=== PATIENT | female | born 1970 | race African-American/Black ===

== ENCOUNTER 2017-04-14 06:49 | Inpatient (IN) ==
[2017-04-14 07:26] LABS: Basophils % 0.7 % (0.0-0.8); Eosinophils # 0.2 10*3/uL (0.0-0.87); Eosinophils % 4.1 % (0.00-10.9); Hematocrit 41.6 VOL% (35.7-47.0); Hemoglobin 13.4 GM/DL (12.0-16.0); Immature Granulocytes % 0.2 %; Immature Granulocytes Absolute 0.01 #; Lymphocytes # 1.3 10*3/uL (1.4-4.0); Lymphocytes % 28.8 % (21.3-54.2); Mean Corpuscular HGB Conc 32.2 GM/DL (32-36); Mean Corpuscular Hemoglobin 32 PG (27-34); Mean Corpuscular Volume 97.7 FL (87-102); Mean Platelet Volume 11.1 FL (9.6-12.0); Monocytes # 0.6 10*3/uL (0.11-0.8); Monocytes % 13.7 % (1.7-12.7); Neutrophils # 2.3 10*3/uL (1.4-7.4); Neutrophils % 52.5 % (38.7-73.9); Platelet Count 260 T/CUMM (130-400); Red Blood Count 4.26 MC/CUMM (3.8-5.5); Red Cell Distribution Width 13.1 % (9.3-17.3); White Blood Count 4.4 T/CUMM (4-12)
[2017-04-14 08:04] LABS: Calcium 9.5 MG/DL (8.5-10.1); Osmolality,Calculated 275.5 MOS/KG (273-304); Potassium 4.2 MMOL/L (3.5-5.1)
--- NOTE | 2017-04-14 08:32 | CT Report ---
Referring physician: Reji Garcia EXAM: CT soft tissue neck with contrast DATE: 04/14/2017 COMPARISON: None REASON: Severe stridor TECHNIQUE: Axial images of the soft tissue neck were obtained after administration of 80 cc of Omnipaque 350 IV contrast. Sagittal and coronal reformatted images were acquired. Total DLP was 432.80 mGy*cm. FINDINGS: No acute findings in the visualized brain, orbits, parotid glands, submandibular glands, nasopharynx, and thyroid gland. Probable chronic scarring at the lung apices with 5 mm noncalcified pulmonary nodule in the right upper lobe. Mucosal thickening with polypoidal mucosal findings in the paranasal sinuses. Degenerative changes are noted. The scans are degraded by motion artifact but the airway appears narrowed especially at the level of the trachea. There is some associated prominence of the epiglottis and aryepiglottic folds. Several lymph nodes in the neck are borderline in size to minimally enlarged. IMPRESSION: The airway appears narrowed especially at the level of the trachea with some of associated prominence of the epiglottis and aryepiglottic folds. This finding can be seen with possible infectious or inflammatory process. If symptoms persist, endoscopy may be helpful to exclude additional pathology. Sinusitis with retention cysts/polyps. Several bilateral neck nodes which are borderline in size to minimally enlarged. Indeterminate 5 mm noncalcified pulmonary nodule in the right upper lobe. Short-term follow-up CT chest may be helpful for further evaluation. The CT exam was performed using one or more of the following dose reduction techniques: Automated exposure control and adjustment of the mA and/or kV according to patient size. PROCEDURE INTERPRETED AT [facility] DEPARTMENT OF RADIOLOGY Final Report Signed by: Dr. Delmis Elizabeth
[2017-04-14] MEDS ORDERED: LEVOFLOXACIN INJ 750 MG in PREMIX 1 EACH IV STA (09:09)
[2017-04-14] MEDS ORDERED: methylPREDNISolone SOD SUC 125 MG/2 ML VIAL IV STA (09:09)
[2017-04-14] MEDS ORDERED: RACEPINEPHRINE 0.5 ML NEB RESP TX STA (09:10)
[2017-04-14] MEDS ORDERED: LEVOFLOXACIN INJ 150 ML IV ONE (09:14)
[2017-04-14] MEDS ORDERED: methylPREDNISolone SOD SUC 125 MG/2 ML VIAL ONE (09:14)
--- NOTE | 2017-04-14 10:21 | Consultation ---
Assessment and Plan - Time spent with patient Time spent with patient: Greater than 30 minutes (1) Acute laryngotracheitis Status: Acute Assessment and plan: I strongly recommend the patient be admitted to ICU and I would be more than happy to consult because I feel the patient has multiple comorbidities I feel she would be best treated primarily by the hospitalist but I would be happy to consult. My recommendations for care from an otolaryngologic standpoint would include IV antibiotics to cover staph aureus and potentially MRSA I presume she will have a nasal swab upon ICU admittance which would be recommended. Additionally she needs at least 24 hours of Decadron 10 mg IV every 8 hours. I will defer aggressive treatment of her primary and secondary hyperglycemia/ possible diabetes to the hospitalist. Additionally I recommend Flonase daily 2 puffs, inhaled/nebulized cortico-steroid treatment I will defer this to pulmonology and/or the hospitalist. I would consider an antifungal swish and spit to help prevent any secondary yeast infection that may follow the above treatment. Additionally I would add nasal saline sprays 4 times daily. Additionally I would consider treating the external nasal valve with Elocon cream but if there is an exacerbation I would strongly consider switching to mupirocin. I would consider but defer to the hospitalist consulting pulmonology and potentially rheumatology. If she does not improve over the next several days we may consider taking her back on Sunday to the OR for a laryngoscopy to better evaluate the subglottis for potential lesions but her airway is so tedious currently that that would put her at a high risk. Additionally I would have a very narrow threshold for intubation and would plan accordingly with potentially the glide scope and anesthesia being present as I feel she will be a difficult intubation. Do not hesitate to call and ask for any additional advice or questions I plan on being consulted on this case and following this case but with her multiple medical comorbidities do not feel she is best served with me being primary on this case. Current Visit: Yes (2) Chronic sinusitis Status: Acute Current Visit: Yes (3) Rhinitis sicca Status: Acute Current Visit: Yes (4) Nasal valve stenosis Status: Acute Current Visit: Yes (5) Eczema Status: Acute Current Visit: Yes (6) Dyspnea Status: Acute Current Visit: Yes (7) Laryngeal stridor Status: Acute Current Visit: Yes History of Present Illness - Data of Consult Patient: new to practice Consult date: 04/14/17 Requesting Physician: Tommy Garcia - Consult Narrative Reason for consult: Stridor, laryngotracheal swelling/edema per CT History of present illness: Ms. Nunez is a 46 year old female 1-1/2 year history of shortness of breath that has been slowly increasing in severity and frequency with this acute exacerbation she came to the emergency room to be evaluated where she was found to be stridorous but was able to be kept from respiratory distress and failure with racemic epi and oxygen treatment. She has seen an ENT in the past 2 described her to have "eczema in the nose". CT was performed and found to have laryngotracheal edema of unknown origin probably the cause of her stridor and pansinusitis and ENT was called for evaluation and treatment. CC: - Home Medications and Allergies Allergies/Adverse Reactions: Allergies Allergy/AdvReac Type Severity Reaction Status Date / Time No Known Allergies Allergy Verified 04/14/17 06:56 12 point system: reviewed and no additional remarkable complaints except as stated - EENT Nose, mouth and throat: Present: nasal congestion, sinus pressure, sore throat, throat swelling - Respiratory Respiratory: Present: cough, dyspnea, dyspnea on exertion, other Medical,Surgical,& Family Hx - Medical History Cardio: History of: Hypertension - Surgical History Orthopedic Surgeries: Surgical HX of;: Total Hip Replacement (Right) - Social History Smoking Status: Never smoker Exam - Constitutional Vitals: Period Temp Pulse Resp BP Sys/Wagner Pulse Ox Last 24 Hr 97.0 F-97.0 F 67-72 19-24 189-189/109-109 100-100 General appearance: mild distress, morbidly obese - Head Head exam: Present: normal inspection, normocephalic - Eye Eye exam: Present: EOMI Pupils: Present: ADELINE - ENT ENT exam: Present: other (Bilateral external nasal valve stenosis secondary to chronic long-standing untreated or poorly treated eczema. Bilateral rhinitis Pura secondary to eczema and nasal valve stenosis or potentially primary or both. A chronic bilateral sinusitis most likely secondary to her external nasal valve stenosis and rhinitis Pura. Bedside laryngoscopy was performed revealing diffuse supraglottic edema unable to visualize the subglottis on exam no diffuse mass or lesion causing this presumed secondary bacterial supraglottitis as an exacerbation of viral supraglottitis which she would be prone to because of her upper respiratory complaints consistent with a unified airway.) - Expanded ENT Exam Mouth exam: Present: dry mucosa Throat exam: Present: post pharyngeal edema, post pharyngeal erythema ( Erythemic and edematous uvula possibly bacterial but potentially irritative because of upper respiratory symptoms and chronic mouth breathing and snoring) - Neck Neck exam: Present: lymphadenopathy (Per CT no gross lymphadenopathy per palpation though there is tenderness and with her amount of presumed infection this would be consistent with the lymphadenopathy as well), tenderness - Respiratory Respiratory exam: Present: stridor (Mild stridor but could escalate to respiratory distress if continued treatment is not performed I would have a low threshold for intubation in the prepared with a glide scope and potentially anesthesia because of a swollen supraglottis and a large tongue base I would presume she would be a difficult intubation) - GI/Abdominal GI/Abdominal exam: Present: soft (Obese) - Extremities Exam Extremities exam: Present: normal inspection, normal capillary refill - Neurological Exam Neurological exam: Present: alert, oriented X3, CN II-XII intact - Psychiatric Psychiatric exam: Present: normal affect, normal mood - Skin Skin exam: Present: normal color, warm Results - Labs CBC & BMP: 04/14/17 07:20 04/14/17 07:20 Lab Results: I have reviewed the past 24 hour labs - Diagnostic Findings Procedure: CT: pending, image reviewed by me, report reviewed by me ( Laryngotracheal edema consistent with clinical exam)
[2017-04-14] MEDS ORDERED: DEXAMETHASONE 10 MG/1 ML VIAL IV STA (10:22)
--- NOTE | 2017-04-14 10:22 | Emergency Department Note ---
Junior Lyn Brittany, am scribing for, and in the presence of, Tommy Garcia MD 07:10. Jose Lyn Doug C, MD, personally performed the services described in this documentation, ascribed by Sophia Pacheco in my presence, and it is both accurate and complete . Arrival - Arrival Chief Complaint: Shortness of Breath Stated Complaint: cant catch breath ED Nursing Triage Note: Pt c/o SOB (upper resp) that has been going on for a 1.5 years now pt has been seen by ENT (Dx with eczema in her nose) and [facility] ER several times. Mode of Arrival: Wheelchair Limitations: No Limitations Source: Patient, RN Notes Reviewed - History of Present Illness HPI Narrative: Patient is a 46-year-old black female presents emergency room complaining of trouble breathing for the last year and a half. Patient states this seems to be getting worse. Patient states she went to the ears nose and throat doctor in [facility] who looked in her nose and told her she had eczema in her nose. She has a long history of eczema. She did not have a laryngoscopy apparently. Patient is a smoker and states she smoked about a pack a day for 15 -20 years. She has not coughed up any blood. She states her shortness of breath is getting worse. Patient denies any fever, chills, or other constitutional symptoms. Onset (ago): year(s) (1.5 years) Consistency: constant Allergies/Adverse Reactions: Allergies Allergy/AdvReac Type Severity Reaction Status Date / Time No Known Allergies Allergy Verified 04/14/17 06:56 Home Medications: Home Medications Medication Instructions Recorded Confirmed Type Valsartan [Diovan] 160 mg PO BEDTIME 04/14/17 04/14/17 History Review of System - Review of System 12 point system: reviewed and no additional remarkable complaints except as stated - Review of System Constitutional: Absent: chills, fever Eyes: Absent: vision change Head/Ears/Nose/Throat: Present: other ("feels as if something is stuck in her throat"). Absent: nasal drainage, sore throat Respiratory: Present: respiratory distress (Stridor) Cardiovascular: Present: dyspnea on exertion. Absent: chest pain Gastrointestinal: Absent: abdominal pain, nausea, vomiting, diarrhea, constipation Genitourinary female: Absent: dysuria, frequency, urgency Musculoskeletal: Absent: arm pain, back pain, leg pain, neck pain Skin: Absent: rash Neurological: Absent: headache Psychiatric: Absent: anxiety, depression Hematological/Lymphatic: Absent: easy bleeding, easy bruising Medical,Surgical,& Family Hx - Medical History Cardio: History of: Hypertension Other: History of: Eczema - Surgical History Reproductive Surgeries: Surgical HX of;: Tubal Ligation Orthopedic Surgeries: Surgical HX of;: Total Hip Replacement (Right) - Family History Family History: Reports;: Family Diabetes, Family Hypertension - Social History Smoking Status: Former smoker (PPD x15 years prior to cessation) Exam Vital Signs: Vital Signs Temperature 97.0 F L 04/14/17 07:08 Pulse Rate 72 04/14/17 09:53 Respiratory Rate 19 04/14/17 09:53 Blood Pressure 189/109 04/14/17 07:08 O2 Sat by Pulse Oximetry 100 04/14/17 09:53 - General General appearance: alert, in distress (Patient is stridorous) - Head Head exam: Present: atraumatic, normocephalic, normal inspection - Eye Eye exam: Present: normal appearance, PERRL, EOMI - ENT ENT exam: Present: mucous membranes moist. Absent: normal oropharynx ( erythematous posterior phayrnx; enlarged tonsils bilaterally) - Neck Neck exam: Present: normal inspection, full ROM, trachea midline - Chest Chest inspection: Present: normal inspection, symmetric chest wall rise - Respiratory Respiratory exam: Present: stridor. Absent: normal lung sounds bilaterally - Cardiovascular Cardiovascular exam: Present: regular rate, normal rhythm, normal heart sounds - Abdominal Exam Abdominal exam: Present: soft, normal bowel sounds. Absent: tenderness - Extremities Exam Extremities exam: Present: normal inspection - Back Exam Back exam: Present: normal inspection - Neurological Exam Neurological exam: Present: alert, oriented X3, CN II-XII intact. Absent: motor sensory deficit - Psychiatric Psychiatric exam: Present: normal affect, normal mood - Skin Skin exam: Present: warm, dry Course Course Narrative: Patient's clinical presentation, laboratory radiograph findings were discussed with Dr. Jerrell Livingston who will see the patient in the emergency room. Patient was found to have findings on her nasal laryngoscope with consistent with her CT findings. He requests that the hospitalist service admit her. She was discussed with Sissy who is covering the hospitalist service and a unit bed will be obtained. Results - Labs CBC & BMP: 04/14/17 07:20 04/14/17 07:20 Lab Results: I have reviewed the patients labs Labs: Laboratory Tests 04/14/17 07:20 WBC 4.4 RBC 4.26 Hgb 13.4 Hct 41.6 Plt Count 260 Barber % (Auto) 13.7 H Lymph # (Auto) 1.3 L Laboratory Tests 04/14/17 07:20 Sodium 139 Potassium 4.2 Chloride 103 Carbon Dioxide 33 H BUN 9 Creatinine 0.90 Glucose 99 - Diagnostic Findings Procedure: CT: report reviewed by me (Soft Tissue Neck CT: The airway appears narrowed especially at the level of the trachea with some of associated prominence of the epiglottis and aryepiglottic folds. This finding can be seen with possible infectious or inflammatory process. If symptoms persist, endoscopy may be helpful to exclude additional pathology. Sinusitis with retention cysts/polyps. Several bilateral neck nodes which are borderline in size to minimally enlarged. Indeterminate 5 mm noncalcified pulmonary nodule in the right upper lobe. Short-term follow-up CT chest may be helpful for further evaluation.) Disposition Clinical Impression: Acute tracheitis, Stridor Case discussed with: patient Disposition: Still a Patient Condition: Guarded Time of Disposition: 10:21
[2017-04-14] MEDS ORDERED: DEXAMETHASONE 10 MG/1 ML VIAL ONE (10:37)
--- NOTE | 2017-04-14 10:50 | Hospitalist History & Physical ---
Assessment and Plan - Time spent with patient Time spent with patient: Greater than 30 minutes (1) Laryngeal stridor Status: Acute Assessment and plan: Admit to CCu. Start steroids; inhalers; consult ENT, pulmonary. Will discuss with Dr Roe for further recommendations for care. Current Visit: Yes History of Present Illness Chief complaint: SOB; Stridor History of present illness: Ms. Nunez is a 46 year old black female with PMHx of HTN and eczema present to ED for c/o worsening shortness of breath. Upon arrival to the ED she was noted to be significantly short of breath and stridor present. She reports she has been dealing with the shortness of breath for over a year. She reports that she went to an ENT in [place] and was only told she had eczema in her nose but did not evaluate her throat. She reports feeling like her throat is closing up on her. While in the ED: she was geven racepinephrine neb; Solumedrol 125mg; Dexamethoasone 10mg IV; Levaquin 750mg IV. CT Neck: IMPRESSION: The airway appears narrowed especially at the level of the trachea with some of associated prominence of the epiglottis and aryepiglottic folds. This finding can be seen with possible infectious or inflammatory process. If symptoms persist, endoscopy may be helpful to exclude additional pathology. Sinusitis with retention cysts/polyps. Several bilateral neck nodes which are borderline in size to minimally enlarged. Indeterminate 5 mm noncalcified pulmonary nodule in the right upper lobe. Short-term follow-up CT chest may be helpful for further evaluation. LABS: WBC 4.4; H&H stable 13.4 & 41.6; Electrolytes within normal range; BUN 9 creatinine 0.90; ENT was consulted to the ED: ENT (Dr Livingston) recommended patient be admitted to ICU and would be more than happy to consult because he feels patient has multiple comorbidities. Recommendations for care from an otolaryngologic standpoint would include IV antibiotics to cover staph aureus and potentially MRSA; a nasal swab upon ICU admittance. Additionally she needs at least 24 hours of Decadron 10 mg IV every 8 hours. He recommends Flonase daily 2 puffs, inhaled/nebulized cortico-steroid treatment I will defer this to pulmonology and /or the hospitalist. I would consider an antifungal swish and spit to help prevent any secondary yeast infection that may follow the above treatment. Additionally He recommends add nasal saline sprays 4 times daily. Additionally I would consider treating the external nasal valve with Elocon cream but if there is an exacerbation I would strongly consider switching to mupirocin. If patient does not improve over the next several days we may consider taking her back on Sunday to the OR for a laryngoscopy to better evaluate the subglottis for potential lesions but her airway is so tedious currently that that would put her at a high risk, with a very narrow threshold for intubation and would plan accordingly with potentially the glide scope and anesthesia being present, she will be a difficult intubation. Do not hesitate to call and ask for any additional advice or questions I plan on being consulted on this case and following this case but with her multiple medical comorbidities do not feel she is best served with me being primary on this case. After Discussion with Dr Brock Garcia in the Ed and Dr Roe with Hospital Medicine, it was agreed for the patient to be admitted to CCU for further evaluation and close monitoring. Home medications will be reviewed and reconciliation to follow. Home Medications Medication Instructions Recorded Confirmed Type Albuterol Inhaler [Proventil 2 puff INH Q4H PRN 04/14/17 04/14/17 History Inhaler] Valsartan [Diovan] 160 mg PO BEDTIME 04/14/17 04/14/17 History Allergies Allergy/AdvReac Type Severity Reaction Status Date / Time No Known Allergies Allergy Verified 04/14/17 06:56 Medical,Surgical,& Family Hx - Medical History Cardio: History of: Hypertension Other: History of: Eczema - Surgical History Reproductive Surgeries: Surgical HX of;: Tubal Ligation Orthopedic Surgeries: Surgical HX of;: Total Hip Replacement (Right) - Family History Family History: Reports;: Family Diabetes, Family Hypertension - Social History Smoking Status: Never smoker Review of systems: ROS completed and pertinent positives and negatives in HPI. Exam - Constitutional Vitals: Period Temp Pulse Resp BP Sys/Wagner Pulse Ox Last 24 Hr 97.0 F-97.0 F 67-72 19-24 189-189/109-109 100-100 General appearance: over weight - Head Head exam: Present: normal inspection - Eye Eye exam: Present: EOMI Pupils: Present: ADELINE - Expanded ENT Exam Mouth exam: Present: dry mucosa Throat exam: Present: post pharyngeal edema, post pharyngeal erythema ( Erythemic and edematous uvula possibly bacterial but potentially irritative because of upper respiratory symptoms and chronic mouth breathing and snoring) - Neck Neck exam: Present: normal inspection (midline trachea; with improving stridor) . Absent: thyromegaly - Respiratory Respiratory exam: Present: clear to auscultation bilaterally, stridor (mild and improving (per patient"my throat does feel a little more open than before") - Cardiovascular Cardiovascular exam: Present: regular rate and rhythm - GI/Abdominal GI/Abdominal exam: Present: normal bowel sounds, soft. Absent: tenderness, rebound - Extremities Exam Extremities exam: Present: normal inspection, full ROM. Absent: edema - Neurological Exam Neurological exam: Present: alert, oriented X3, CN II-XII intact - Psychiatric Psychiatric exam: Present: normal affect, normal mood. Absent: agitated, anxious - Skin Skin exam: Present: normal color, warm, dry Results - Labs CBC & BMP: 04/14/17 07:20 04/14/17 07:20 Lab Results: I have reviewed the past 24 hour labs - Diagnostic Findings Procedure: CT: report reviewed by me (Neck: the airways appear narrowed marshal. at the level of the trachea w/ some of associated prominence of the epiglottis & larynepiglottic folds, can be possible infectious or inflammatory process; endocsopy may be helpful)
[2017-04-14] MEDS ORDERED: ALBUTEROL 2.5 MG/3 ML NEB RESP TX PRN (11:05)
[2017-04-14] MEDS ORDERED: GLUCAGON 1 MG VIAL IM PRN (11:05)
[2017-04-14] MEDS ORDERED: DEXTROSE 50% 25 GM/50 ML SYRINGE IV PRN (11:05)
[2017-04-14] MEDS ORDERED: ONDANSETRON 4 MG/2 ML VIAL IV PRN (11:05)
[2017-04-14] MEDS: NYSTATIN 500,000 UNIT/5 ML UDCUP SWISH/SWAL SCH ×3 (12:25→20:48)
[2017-04-14] MEDS: ENOXAPARIN 40 MG/0.4 ML SYRINGE SUBCUT SCH (12:25)
[2017-04-14] MEDS: hydrALAZINE 20 MG/1 ML VIAL IV PRN (12:25)
[2017-04-14] MEDS: PANTOPRAZOLE 40 MG VIAL IV SCH (12:25)
[2017-04-14] MEDS: BUDESONIDE 0.5 MG/2 ML NEB RESP TX SCH ×2 (12:51→19:11)
[2017-04-14] MEDS: INSULIN REGULAR 100 UNIT/ML SUBCUT SCH ×3 (13:02→20:47)
[2017-04-14] MEDS: FLUTICASONE 50 MCG NASAL SPRAY 16 GM BOTTLE BOTH NARES SCH (13:04)
[2017-04-14] MEDS: DEXAMETHASONE 10 MG/1 ML VIAL IV SCH ×2 (14:06→21:43)
[2017-04-14] MEDS: VANCOMYCIN INJ 1,750 MG in SODIUM CHLORIDE 0.9% 500 ML IV SCH ×2 (14:24→20:48)
[2017-04-14] MEDS: SODIUM CHLORIDE 0.65% NASAL SPRAY 45 ML BOTTLE BOTH NARES SCH ×3 (15:48→20:49)
[2017-04-14] MEDS: MORPHINE 2 MG/1 ML SYRINGE IV PRN ×2 (15:49→20:48)
[2017-04-15 04:41] LABS: Basophils % 0.1 % (0.0-0.8); Hematocrit 43.1 VOL% (35.7-47.0); Hemoglobin 13.9 GM/DL (12.0-16.0); Immature Granulocytes % 0.4 %; Immature Granulocytes Absolute 0.04 #; Lymphocytes # 0.9 10*3/uL (1.4-4.0); Lymphocytes % 8.3 % (21.3-54.2); Mean Corpuscular HGB Conc 32.3 GM/DL (32-36); Mean Corpuscular Hemoglobin 32 PG (27-34); Mean Corpuscular Volume 97.7 FL (87-102); Mean Platelet Volume 11.3 FL (9.6-12.0); Monocytes # 0.1 10*3/uL (0.11-0.8); Monocytes % 0.8 % (1.7-12.7); Neutrophils # 9.5 10*3/uL (1.4-7.4); Neutrophils % 90.4 % (38.7-73.9); Platelet Count 271 T/CUMM (130-400); Red Blood Count 4.41 MC/CUMM (3.8-5.5); Red Cell Distribution Width 12.9 % (9.3-17.3); White Blood Count 10.5 T/CUMM (4-12)
[2017-04-15 05:16] LABS: Calcium 9.3 MG/DL (8.5-10.1); Potassium 4.3 MMOL/L (3.5-5.1)
[2017-04-15] MEDS: DEXAMETHASONE 10 MG/1 ML VIAL IV SCH ×3 (05:49→21:16)
[2017-04-15] MEDS: BUDESONIDE 0.5 MG/2 ML NEB RESP TX SCH ×2 (07:24→19:17)
[2017-04-15] MEDS: INSULIN REGULAR 100 UNIT/ML SUBCUT SCH ×4 (07:35→21:14)
[2017-04-15] MEDS: VANCOMYCIN INJ 1,750 MG in SODIUM CHLORIDE 0.9% 500 ML IV SCH ×2 (08:30→15:07)
--- NOTE | 2017-04-15 08:57 | Hospitalist Progress Note ---
Assessment and Plan - Time spent with patient Time spent with patient: Less than 30 minutes (1) Acute laryngotracheitis Status: Acute Assessment and plan: ENT has been consulted and is assisting. Will continue IV antibiotics, nebulized corticosteroids, IV Decadron. Will await further recommendations from ENT. Current Visit: Yes (2) Hypertension Status: Chronic Assessment and plan: Blood pressures remain well-controlled at this time. Will continue current regimen. Current Visit: Yes Qualifiers: Hypertension type: essential hypertension Qualified Code(s): I10 - Essential (primary) hypertension Hospitalist: Subjective Interval history: Patient feels better today. She still has some hoarseness and has some dyspnea with minimal exertion. She denies any chest pain, cough, sputum production Exam - Constitutional Vitals: Period Temp Pulse Resp BP Sys/Wagner Pulse Ox Last 24 Hr 97.2 F-98 F 67-87 12-24 127-169/76-140 90-100 General appearance: no acute distress - Head Head exam: Present: normocephalic, atraumatic - Eye Eye exam: Present: EOMI Pupils: Present: ADELINE - ENT ENT exam: Present: normal exam - Expanded ENT Exam Mouth exam: Present: dry mucosa Throat exam: Present: post pharyngeal edema, post pharyngeal erythema ( Erythemic and edematous uvula possibly bacterial but potentially irritative because of upper respiratory symptoms and chronic mouth breathing and snoring) - Respiratory Respiratory exam: Present: clear to auscultation bilaterally - Cardiovascular Cardiovascular exam: Present: regular rate and rhythm - GI/Abdominal GI/Abdominal exam: Present: normal bowel sounds, other. Absent: tenderness, rebound - Extremities Exam Extremities exam: Absent: calf tenderness - Neurological Exam Neurological exam: Present: alert, oriented X3, CN II-XII intact. Absent: motor sensory deficit - Psychiatric Psychiatric exam: Present: normal affect, normal mood. Absent: agitated, anxious - Skin Skin exam: Present: warm, dry. Absent: erythema Results - Labs CBC & BMP: 04/15/17 04:30 04/15/17 04:30 Lab Results: I have reviewed the past 24 hour labs
[2017-04-15] MEDS: PANTOPRAZOLE 40 MG VIAL IV SCH (09:42)
[2017-04-15] MEDS: NYSTATIN 500,000 UNIT/5 ML UDCUP SWISH/SWAL SCH ×4 (09:43→21:14)
[2017-04-15] MEDS: LEVOFLOXACIN INJ 750 MG in PREMIX 1 EACH IV SCH (09:43)
[2017-04-15] MEDS: SODIUM CHLORIDE 0.65% NASAL SPRAY 45 ML BOTTLE BOTH NARES SCH ×4 (09:44→21:15)
[2017-04-15] MEDS: FLUTICASONE 50 MCG NASAL SPRAY 16 GM BOTTLE BOTH NARES SCH (09:46)
[2017-04-15] MEDS: hydrALAZINE 20 MG/1 ML VIAL IV PRN (10:07)
[2017-04-15] MEDS: ENOXAPARIN 40 MG/0.4 ML SYRINGE SUBCUT SCH (11:27)
--- NOTE | 2017-04-15 11:58 | Progress Note ---
Assessment and Plan - Time spent with patient Time spent with patient: Less than 30 minutes (1) Acute laryngotracheitis Status: Acute Assessment and plan: I strongly recommend the patient be admitted to ICU and I would be more than happy to consult because I feel the patient has multiple comorbidities I feel she would be best treated primarily by the hospitalist but I would be happy to consult. My recommendations for care from an otolaryngologic standpoint would include IV antibiotics to cover staph aureus and potentially MRSA I presume she will have a nasal swab upon ICU admittance which would be recommended. Additionally she needs at least 24 hours of Decadron 10 mg IV every 8 hours. I will defer aggressive treatment of her primary and secondary hyperglycemia/ possible diabetes to the hospitalist. Additionally I recommend Flonase daily 2 puffs, inhaled/nebulized cortico-steroid treatment I will defer this to pulmonology and/or the hospitalist. I would consider an antifungal swish and spit to help prevent any secondary yeast infection that may follow the above treatment. Additionally I would add nasal saline sprays 4 times daily. Additionally I would consider treating the external nasal valve with Elocon cream but if there is an exacerbation I would strongly consider switching to mupirocin. I would consider but defer to the hospitalist consulting pulmonology and potentially rheumatology. If she does not improve over the next several days we may consider taking her back on Sunday to the OR for a laryngoscopy to better evaluate the subglottis for potential lesions but her airway is so tedious currently that that would put her at a high risk. Additionally I would have a very narrow threshold for intubation and would plan accordingly with potentially the glide scope and anesthesia being present as I feel she will be a difficult intubation. Do not hesitate to call and ask for any additional advice or questions I plan on being consulted on this case and following this case but with her multiple medical comorbidities do not feel she is best served with me being primary on this case. 04/15/2017 The patient is improving and an expected pace. Will continue current treatment. Unless there is marked improvement by tomorrow we will discuss possibly doing a microscopic laryngoscopy and checking for any subglottic mass or lesion that could be causing this additionally we would do a nasal debridement and potentially sinus irrigation to see if we could improve her upper airway and speed up her recovery. We will do this in the OR in a controlled fashion. I think overall she is improving enough that we would be able to do this in the OR and get her off the vent in a safe and controlled fashion. Overall currently am pleased with her progress and do not wish to add anything currently. I will continue to follow this patient throughout her stay. Current Visit: Yes (2) Chronic sinusitis Status: Acute Current Visit: Yes (3) Rhinitis sicca Status: Acute Current Visit: Yes (4) Nasal valve stenosis Status: Acute Current Visit: Yes (5) Eczema Status: Acute Current Visit: Yes (6) Dyspnea Status: Acute Current Visit: Yes (7) Laryngeal stridor Status: Acute Current Visit: Yes Family Medicine PN Sub Interval history: 46-year-old female overall improving since admittance to the ICU yesterday for acute laryngotracheitis probably bacterial. I agree with her treatment and she has noted improvement in her shortness of breath and neck pain and tightness. Overall she states she is more comfortable and is not having the difficulty or discomfort with her shortness of breath. She is seen currently not wearing her oxygen and saturating 97% on room air I do not know if this is intermittent or at baseline. She notes no new complaints no new headaches facial pains or new or worsening cough or new onset stridor or worsening stridor. She notes continued difficulty speaking but no worse than previous. Exam (Progress Note) - Constitutional Vitals: Period Temp Pulse Resp BP Sys/Wagner Pulse Ox Last 24 Hr 97.3 F-98 F 71-96 12-24 109-169/56-140 90-100 General appearance: mild distress, over weight - Head Head exam: Present: normal inspection, normocephalic - Eye Eye exam: Present: EOMI Pupils: Present: ADELINE - ENT ENT exam: Present: normal exam, normal external ear exam, other (Oropharynx still reveals a erythemic uvula and pharyngeal edema. Anterior rhinoscopy reveals bilateral nasal crusting consistent with her history of nasal eczema overall the external valve eczema is somewhat improved secondary to the application of topical steroid but does not appear to be worsening therefore it is unlikely to be a secondary bacterial infection) - Expanded ENT Exam ENT Exam Mouth exam: Present: moist (Improved from yesterday's dry mucosal airway) Throat exam: Present: post pharyngeal edema (Somewhat improved from yesterday), post pharyngeal erythema (Somewhat improved from yesterday) - Neck Neck exam: Present: normal inspection, tenderness (Improved from yesterday but still present) - Respiratory Respiratory exam: Present: stridor (Much improved stridor minimal with normal breathing no respiratory distress or use of accessory muscles which is an improvement from yesterday) - Cardiovascular Cardiovascular exam: Present: regular rate and rhythm - GI/Abdominal GI/Abdominal exam: Present: soft - Neurological Exam Neurological exam: Present: alert, oriented X3, CN II-XII intact - Psychiatric Psychiatric exam: Present: normal affect, normal mood - Skin Skin exam: Present: normal color, warm Results - Labs CBC & BMP: 04/15/17 04:30 04/15/17 04:30 Lab Results: I have reviewed the past 24 hour labs (I am very pleased with the control of her sugars and also her white count in light of treatment) - Diagnostic Findings Procedure: CT: pending, image reviewed by me, report reviewed by me
[2017-04-15] MEDS: MORPHINE 2 MG/1 ML SYRINGE IV PRN (21:19)
[2017-04-16] MEDS: VANCOMYCIN INJ 1,750 MG in SODIUM CHLORIDE 0.9% 500 ML IV SCH ×3 (01:00→16:38)
[2017-04-16] MEDS: DEXAMETHASONE 10 MG/1 ML VIAL IV SCH ×3 (05:54→22:13)
[2017-04-16] MEDS: BUDESONIDE 0.5 MG/2 ML NEB RESP TX SCH ×2 (07:22→19:10)
[2017-04-16] MEDS: INSULIN REGULAR 100 UNIT/ML SUBCUT SCH ×4 (07:23→20:22)
[2017-04-16] MEDS: FLUTICASONE 50 MCG NASAL SPRAY 16 GM BOTTLE BOTH NARES SCH (08:19)
[2017-04-16] MEDS: SODIUM CHLORIDE 0.65% NASAL SPRAY 45 ML BOTTLE BOTH NARES SCH ×4 (08:19→20:22)
[2017-04-16] MEDS: PANTOPRAZOLE 40 MG VIAL IV SCH (08:20)
[2017-04-16] MEDS: NYSTATIN 500,000 UNIT/5 ML UDCUP SWISH/SWAL SCH ×4 (08:20→20:22)
[2017-04-16] MEDS: LEVOFLOXACIN INJ 750 MG in PREMIX 1 EACH IV SCH (08:24)
[2017-04-16] MEDS: ENOXAPARIN 40 MG/0.4 ML SYRINGE SUBCUT SCH (11:13)
--- NOTE | 2017-04-16 11:50 | Progress Note ---
Assessment and Plan (1) Acute laryngotracheitis Status: Acute Assessment and plan: I strongly recommend the patient be admitted to ICU and I would be more than happy to consult because I feel the patient has multiple comorbidities I feel she would be best treated primarily by the hospitalist but I would be happy to consult. My recommendations for care from an otolaryngologic standpoint would include IV antibiotics to cover staph aureus and potentially MRSA I presume she will have a nasal swab upon ICU admittance which would be recommended. Additionally she needs at least 24 hours of Decadron 10 mg IV every 8 hours. I will defer aggressive treatment of her primary and secondary hyperglycemia/ possible diabetes to the hospitalist. Additionally I recommend Flonase daily 2 puffs, inhaled/nebulized cortico-steroid treatment I will defer this to pulmonology and/or the hospitalist. I would consider an antifungal swish and spit to help prevent any secondary yeast infection that may follow the above treatment. Additionally I would add nasal saline sprays 4 times daily. Additionally I would consider treating the external nasal valve with Elocon cream but if there is an exacerbation I would strongly consider switching to mupirocin. I would consider but defer to the hospitalist consulting pulmonology and potentially rheumatology. If she does not improve over the next several days we may consider taking her back on Sunday to the OR for a laryngoscopy to better evaluate the subglottis for potential lesions but her airway is so tedious currently that that would put her at a high risk. Additionally I would have a very narrow threshold for intubation and would plan accordingly with potentially the glide scope and anesthesia being present as I feel she will be a difficult intubation. Do not hesitate to call and ask for any additional advice or questions I plan on being consulted on this case and following this case but with her multiple medical comorbidities do not feel she is best served with me being primary on this case. 04/15/2017 The patient is improving and an expected pace. Will continue current treatment. Unless there is marked improvement by tomorrow we will discuss possibly doing a microscopic laryngoscopy and checking for any subglottic mass or lesion that could be causing this additionally we would do a nasal debridement and potentially sinus irrigation to see if we could improve her upper airway and speed up her recovery. We will do this in the OR in a controlled fashion. I think overall she is improving enough that we would be able to do this in the OR and get her off the vent in a safe and controlled fashion. Overall currently am pleased with her progress and do not wish to add anything currently. I will continue to follow this patient throughout her stay. 04/16/2017 With minimal continued improvement I feel it best to take the patient back for a diagnostic microlaryngoscopy with possible injection of steroid if this is purely just edematous if there is additional subglottic pathology we will potentially look at biopsy as well. Additionally we will perform a sinus irrigation and nasal debridement to improve her upper airway. Risks and benefits were discussed and she desires to proceed with the above procedure. Current Visit: Yes (2) Chronic sinusitis Status: Acute Current Visit: Yes (3) Rhinitis sicca Status: Acute Current Visit: Yes (4) Nasal valve stenosis Status: Acute Current Visit: Yes (5) Eczema Status: Acute Current Visit: Yes (6) Dyspnea Status: Acute Current Visit: Yes (7) Laryngeal stridor Status: Acute Current Visit: Yes Family Medicine PN Sub Interval history: Minimal progress since yesterday. She is still very tight with some minimal inspiratory stridor and overall just a restricted airway at the level of the glottis and subglottis. Since this is been going on for so long and I am unable to get a good bedside view of the subglottis I discussed with her surgery for evaluation/laryngoscopy and evaluation of the subglottis and debridement and irrigation of the nasal airway and sinuses. Risks and benefits were discussed and she desires to proceed. Exam (Progress Note) - Constitutional Vitals: Period Temp Pulse Resp BP Sys/Wagner Pulse Ox Last 24 Hr 97.3 F-98.7 F 61-91 12-20 87-168/50-99 95-100 General appearance: normal weight, no acute distress - Head Head exam: Present: normal inspection, normocephalic - Eye Eye exam: Present: EOMI Pupils: Present: ADELINE - ENT ENT exam: Present: normal external ear exam, other (Continued oropharyngeal edema and uvular erythema additionally anterior rhinoscopy reveals dry crusting of the nasal airway and evidence of chronic sinusitis.) - Expanded ENT Exam ENT Exam Mouth exam: Present: moist Throat exam: Present: post pharyngeal edema, post pharyngeal erythema - Neck Neck exam: Present: normal inspection - Respiratory Respiratory exam: Present: stridor (Still present though nonemergent I want to evaluate and make sure there is any secondary cause for this that I cannot see at the subglottis) - Cardiovascular Cardiovascular exam: Present: regular rate and rhythm - GI/Abdominal GI/Abdominal exam: Present: soft - Neurological Exam Neurological exam: Present: alert, oriented X3, CN II-XII intact - Psychiatric Psychiatric exam: Present: normal affect, normal mood - Skin Skin exam: Present: normal color, warm Results - Labs CBC & BMP: 04/15/17 04:30 04/15/17 04:30 Lab Results: I have reviewed the past 24 hour labs - Diagnostic Findings Procedure: CT: pending, image reviewed by me, report reviewed by me
[2017-04-16] MEDS: ACETAMINOPHEN 325 MG TABLET PO PRN (13:47)
--- NOTE | 2017-04-16 15:20 | EKG Report ---
Stationary ECG Study [facility] Test Date: 04/16/2017 3:20:07 PM Pat Name: KAILA ARANA Department: Room: 123 Gender: F Internal Consultant: SRINIVASA : 1970 Requested by: Jerald Loving Order Number: [id number] Reading MD: GRANT NIEVES Intervals [place] Rate: 61 P: 54 HI: 167 QRS: 31 QRSD: 96 T: 5 QT: 386 QTc: 388 Interpretive Statements SINUS RHYTHM LOW QRS VOLTAGE IN PRECORDIAL LEADS POSSIBLE INFERIOR MYOCARDIAL INFARCTION, PROBABLY OLD WITH POSTERIOR EXTENSION Electronically Signed On 04-16-17 18:13:51 CDT by GRANT NIEVES [email or web address]
[2017-04-16 15:54] LABS: Basophils % 0.1 % (0.0-0.8); Hemoglobin 12.4 GM/DL (12.0-16.0); Immature Granulocytes % 0.7 %; Immature Granulocytes Absolute 0.11 #; Lymphocytes # 0.8 10*3/uL (1.4-4.0); Lymphocytes % 4.6 % (21.3-54.2); Mean Corpuscular HGB Conc 32.6 GM/DL (32-36); Mean Corpuscular Hemoglobin 31 PG (27-34); Mean Corpuscular Volume 96.2 FL (87-102); Mean Platelet Volume 11.6 FL (9.6-12.0); Monocytes # 0.5 10*3/uL (0.11-0.8); Monocytes % 2.7 % (1.7-12.7); Neutrophils # 15.3 10*3/uL (1.4-7.4); Neutrophils % 91.9 % (38.7-73.9); Platelet Count 264 T/CUMM (130-400); Red Blood Count 3.95 MC/CUMM (3.8-5.5); Red Cell Distribution Width 13.3 % (9.3-17.3); White Blood Count 16.6 T/CUMM (4-12)
[2017-04-16 16:14] LABS: Magnesium 2.4 MG/DL (1.8-2.4); Osmolality,Calculated 280.4 MOS/KG (273-304); Potassium 4.2 MMOL/L (3.5-5.1)
[2017-04-16 16:31] LABS: Lymphocytes 2 % (20-55); Platelet Estimate Normal; Segmented Neutrophils 98 % (50-85); Total Cells Counted 100
--- NOTE | 2017-04-16 17:47 | Hospitalist Progress Note ---
Assessment and Plan (1) Acute laryngotracheitis Status: Acute Assessment and plan: Continue supportive care. Laryngoscopy tomorrow. ENT following. Current Visit: Yes (2) Hypertension Status: Chronic Current Visit: Yes Qualifiers: Hypertension type: essential hypertension Qualified Code(s): I10 - Essential (primary) hypertension Hospitalist: Subjective Interval history: Patient seen and examined. No acute events overnight. Case discussed with nursing staff. Labs reviewed. ENT notes reviewed Exam - Constitutional Vitals: Period Temp Pulse Resp BP Sys/Wagner Pulse Ox Last 24 Hr 97.3 F-98.7 F 61-91 12-20 113-168/71-101 94-100 Exam: Constitutional System: No distress. No tremulousness. Head: Normocephalic, atraumatic. Ears, Nose and Throat System: No pain or tenderness. No epistaxis or discharge Eyes System: Pupils equal, round, and reactive. Extraocular muscles intact. Neck: Supple, without adenopathy, No jugular venous distention. Respiratory System: Chest clear to auscultation. Cardiovascular System: Heart with regular rate and rhythm. No murmur. GI System: Abdomen soft, nontender. Normo active bowel sounds present. Musculoskeletal System: limbs with no pedal edema. Full distal pulses. Neurological System: No discernable sensory deficit. No aphasia Psychiatric System: Conversation is rational - Expanded ENT Exam Mouth exam: Present: dry mucosa Throat exam: Present: post pharyngeal edema, post pharyngeal erythema ( Erythemic and edematous uvula possibly bacterial but potentially irritative because of upper respiratory symptoms and chronic mouth breathing and snoring) Results - Labs CBC & BMP: 04/16/17 15:35 04/16/17 15:35 Lab Results: I have reviewed the past 24 hour labs
[2017-04-17] MEDS: DEXAMETHASONE 10 MG/1 ML VIAL IV SCH ×2 (05:23→15:17)
[2017-04-17] MEDS: hydrALAZINE 20 MG/1 ML VIAL IV PRN (05:23)
[2017-04-17] MEDS: BUDESONIDE 0.5 MG/2 ML NEB RESP TX SCH ×2 (07:14→19:10)
[2017-04-17] MEDS: INSULIN REGULAR 100 UNIT/ML SUBCUT SCH ×4 (08:11→21:32)
[2017-04-17] MEDS: PANTOPRAZOLE 40 MG VIAL IV SCH (08:22)
[2017-04-17] MEDS: SODIUM CHLORIDE 0.65% NASAL SPRAY 45 ML BOTTLE BOTH NARES SCH ×4 (08:22→20:35)
[2017-04-17] MEDS: LEVOFLOXACIN INJ 750 MG in PREMIX 1 EACH IV SCH (08:22)
[2017-04-17] MEDS: FLUTICASONE 50 MCG NASAL SPRAY 16 GM BOTTLE BOTH NARES SCH (08:23)
[2017-04-17] MEDS: NYSTATIN 500,000 UNIT/5 ML UDCUP SWISH/SWAL SCH ×4 (09:14→20:34)
[2017-04-17] MEDS ORDERED: TRIAMCINOLONE ACETONIDE 40 MG/1 ML VIAL ONE (10:25)
[2017-04-17] MEDS ORDERED: LIDOCAINE 1%/EPI INJ 20 ML VIAL ONE (10:25)
[2017-04-17] MEDS ORDERED: DEXAMETHASONE 4 MG/1 ML VIAL ONE (11:07)
[2017-04-17] MEDS: ENOXAPARIN 40 MG/0.4 ML SYRINGE SUBCUT SCH (11:21)
[2017-04-17] MEDS ORDERED: MUPIROCIN 2% OINT 22 GM TUBE TOP ONE (11:30)
--- NOTE | 2017-04-17 11:56 | Operative Note ---
Date of procedure: 04/17/17 Pre-op diagnosis: Acute exacerbation of chronic laryngotracheitis, chronic sinusitis, stridor Post-op diagnosis: same Procedure: 1. Direct microscopic laryngoscopy with injection 2. Nasal debridement under endoscopy bilaterally 3. Bilateral frontal sinus irrigation 4. Bilateral maxillary sinus irrigation 5. Bilateral sphenoid sinus irrigation After appropriate informed consent was signed and placed on chart patient was taken back to the operative theater where timeout was performed to verify the correct patient with correct procedure. Patient was transferred onto the operative table in supine position where anesthesia performed general endotracheal anesthesia. Head of bed was rotated 90 and direct laryngoscopy was performed. Under direct laryngoscopy the endotracheal tube was removed from the airway for visualization of the larynx and subglottis. A 30 endoscope was passed and pictures were taken though there was an above average amount of sputum and serosanguineous fluid but no gross masses or lesions were visualized though was a suboptimal view. The ET tube was then placed under direct visualization. 1 cc of 40 mg/mL of Kenalog were injected into the posterior laryngeal region for improved resolution of laryngeal edema. Instrumentation was removed. Under direct visualization in anterior rhinoscopy bilateral nasal airways were packed with 10 cm cotton pledgets soaked in Afrin a total of 10 minutes were spent for appropriate vasoconstriction all the above procedure was performed. The cotton pledgets were and under 30 nasal endoscopy debridement of the right and left nasal airways were performed using various instrumentation. Entellus cyclone loss prevention/safety district manager was then used under 30 nasal endoscopy to irrigate out the frontal maxillary and sphenoid ostia all found in their normal anatomical positions under 30 nasal endoscopy each sinus ostia were irrigated with a total of 60 cc of normal saline. This procedure was performed bilaterally under 30 nasal endoscopy. Purulent discharge was found to be discharged from each of the sinus ostia's. The nasal airway was then packed with mupirocin ointment bilaterally and cotton pledgets soaked in Afrin for hemostasis. The cotton pledgets were removed upon awakening. Patient awoke and tolerated the procedure well. Anesthesia: GETA Surgeon / Physician: Jerrell Livingston Estimated blood loss: minimal Specimens: none sent Condition: stable Disposition: PACU Results - Labs CBC & BMP: 04/16/17 15:35 04/16/17 15:35 Discharge Plan - Discharge Medications No Action Valsartan [Diovan] 160 mg PO BEDTIME Albuterol Inhaler [Proventil Inhaler] 2 puff INH Q4H PRN PRN Reason: Shortness Of Breath/Wheezing - Follow Up or Referral - Forms/Instructions
--- NOTE | 2017-04-17 11:56 | Anesthesia Post-Op ---
Anesthesia Post OP - Post Ansesthetic Evaluation Patient seen in post op: Yes Resp: within normal limits CV: within normal limits Mental: within normal limits Temp: within normal limits [id number]: within normal limits Nausea and Vomiting: within normal limits Pain: within normal limits
[2017-04-17] MEDS ORDERED: LACTATED RINGERS 1,000 ML IV ONE (13:25)
[2017-04-17] MEDS ORDERED: PROPOFOL 200 MG/20 ML VIAL IV ONE (13:25)
[2017-04-17] MEDS ORDERED: SUCCINYLCHOLINE 200 MG/10 ML VIAL ONE (13:25)
[2017-04-17] MEDS ORDERED: SEVOFLURANE 1 UNIT/15 MINUTE INH ONE (13:25)
[2017-04-17] MEDS: MORPHINE 2 MG/1 ML SYRINGE IV PRN (15:18)
[2017-04-17] MEDS ORDERED: VANCOMYCIN INJ 1,750 MG in SODIUM CHLORIDE 0.9% 500 ML IV SCH (16:00)
--- NOTE | 2017-04-17 17:28 | Hospitalist Progress Note ---
Assessment and Plan (1) Acute laryngotracheitis Status: Acute Assessment and plan: Continue supportive care. Laryngoscopy performed today and discussed with ENT. Transfer to the floor. Consult rheumatology. Reduce steroids. Current Visit: Yes (2) Hypertension Status: Chronic Current Visit: Yes Qualifiers: Hypertension type: essential hypertension Qualified Code(s): I10 - Essential (primary) hypertension Hospitalist: Subjective Interval history: Patient seen and examined. No acute events overnight. Case discussed with nursing staff. Labs reviewed. Case discussed with Dr. Livingston. Exam - Constitutional Vitals: Period Temp Pulse Resp BP Sys/Wagner Pulse Ox Last 24 Hr 97.0 F-98.3 F 57-91 12-22 107-184/63-104 93-100 Exam: Constitutional System: No distress. No tremulousness. Head: Normocephalic, atraumatic. Ears, Nose and Throat System: No pain or tenderness. No epistaxis or discharge Eyes System: Pupils equal, round, and reactive. Extraocular muscles intact. Neck: Supple, without adenopathy, No jugular venous distention. Respiratory System: Chest clear to auscultation. Cardiovascular System: Heart with regular rate and rhythm. No murmur. GI System: Abdomen soft, nontender. Normo active bowel sounds present. Musculoskeletal System: limbs with no pedal edema. Full distal pulses. Neurological System: No discernable sensory deficit. No aphasia Psychiatric System: Conversation is rational - Expanded ENT Exam Mouth exam: Present: dry mucosa Throat exam: Present: post pharyngeal edema, post pharyngeal erythema ( Erythemic and edematous uvula possibly bacterial but potentially irritative because of upper respiratory symptoms and chronic mouth breathing and snoring) Results - Labs CBC & BMP: 04/16/17 15:35 04/16/17 15:35 Lab Results: I have reviewed the past 24 hour labs
[2017-04-17] MEDS: DEXAMETHASONE 4 MG/1 ML VIAL IV SCH (17:54)
[2017-04-18] MEDS: DEXAMETHASONE 4 MG/1 ML VIAL IV SCH ×2 (01:41→09:12)
[2017-04-18] MEDS: BUDESONIDE 0.5 MG/2 ML NEB RESP TX SCH ×2 (07:34→19:35)
--- NOTE | 2017-04-18 08:12 | Progress Note ---
Assessment and Plan - Time spent with patient Time spent with patient: Greater than 30 minutes (1) Acute laryngotracheitis Status: Acute Assessment and plan: I strongly recommend the patient be admitted to ICU and I would be more than happy to consult because I feel the patient has multiple comorbidities I feel she would be best treated primarily by the hospitalist but I would be happy to consult. My recommendations for care from an otolaryngologic standpoint would include IV antibiotics to cover staph aureus and potentially MRSA I presume she will have a nasal swab upon ICU admittance which would be recommended. Additionally she needs at least 24 hours of Decadron 10 mg IV every 8 hours. I will defer aggressive treatment of her primary and secondary hyperglycemia/ possible diabetes to the hospitalist. Additionally I recommend Flonase daily 2 puffs, inhaled/nebulized cortico-steroid treatment I will defer this to pulmonology and/or the hospitalist. I would consider an antifungal swish and spit to help prevent any secondary yeast infection that may follow the above treatment. Additionally I would add nasal saline sprays 4 times daily. Additionally I would consider treating the external nasal valve with Elocon cream but if there is an exacerbation I would strongly consider switching to mupirocin. I would consider but defer to the hospitalist consulting pulmonology and potentially rheumatology. If she does not improve over the next several days we may consider taking her back on Sunday to the OR for a laryngoscopy to better evaluate the subglottis for potential lesions but her airway is so tedious currently that that would put her at a high risk. Additionally I would have a very narrow threshold for intubation and would plan accordingly with potentially the glide scope and anesthesia being present as I feel she will be a difficult intubation. Do not hesitate to call and ask for any additional advice or questions I plan on being consulted on this case and following this case but with her multiple medical comorbidities do not feel she is best served with me being primary on this case. 04/15/2017 The patient is improving and an expected pace. Will continue current treatment. Unless there is marked improvement by tomorrow we will discuss possibly doing a microscopic laryngoscopy and checking for any subglottic mass or lesion that could be causing this additionally we would do a nasal debridement and potentially sinus irrigation to see if we could improve her upper airway and speed up her recovery. We will do this in the OR in a controlled fashion. I think overall she is improving enough that we would be able to do this in the OR and get her off the vent in a safe and controlled fashion. Overall currently am pleased with her progress and do not wish to add anything currently. I will continue to follow this patient throughout her stay. 04/16/2017 With minimal continued improvement I feel it best to take the patient back for a diagnostic microlaryngoscopy with possible injection of steroid if this is purely just edematous if there is additional subglottic pathology we will potentially look at biopsy as well. Additionally we will perform a sinus irrigation and nasal debridement to improve her upper airway. Risks and benefits were discussed and she desires to proceed with the above procedure. 04/18/2017 The patient is improved to 70-80% of her baseline. It appears evident that the patient has a baseline/chronic laryngo-tracheitis of unknown origin this would be consistent potentially with an amyloid, sarcoid or Jennifer's process. I have asked for her to be able to see rheumatology in the near future either in the office or the hospital to begin a workup. Additionally she needs to follow- up in my office 1-2 weeks for evaluation and to make sure this is not getting worse. I recommend that she go home on all of her current in-hospital treatments of inhaled steroids and nasal steroids and antibiotics. I also think that after extensive IV steroid treatment that a weaning dose of steroids would be reasonable I would defer this to the hospitalist and/or rheumatology if there are able to evaluate the patient. I feel that she is safe as the patient feels she is safe and she is very close to her baseline and she should be able to go home if there is any questions or concerns we could potentially talk with home health about getting her at home oxygen which may or may not be necessary. I will continue to follow this patient while she is in the hospital but I expect that she will be able to be discharged home either today or tomorrow. Thank you very much for involving me in her care. Current Visit: Yes (2) Chronic sinusitis Status: Acute Current Visit: Yes (3) Rhinitis sicca Status: Acute Current Visit: Yes (4) Nasal valve stenosis Status: Acute Current Visit: Yes (5) Eczema Status: Acute Current Visit: Yes (6) Dyspnea Status: Acute Current Visit: Yes (7) Laryngeal stridor Status: Acute Current Visit: Yes Family Medicine PN Sub Interval history: Ms. Nunez is overall 70-80% improved from her baseline. Overall she does have a chronic baseline disease process which is unknown at this point but as I discussed with the hospitalist and also with the family we have did consider sarcoid, amyloid, Jennifer's as possibles that is causing this chronic laryngotracheitis with edema. After discussing with the family that we have addressed the majority of her acute illness they are ready to go home to follow- up with rheumatology and ENT. Exam (Progress Note) - Constitutional Vitals: Period Temp Pulse Resp BP Sys/Wagner Pulse Ox Last 24 Hr 97.0 F-97.9 F 60-91 15-22 107-174/59-104 93-98 General appearance: no acute distress, over weight - Head Head exam: Present: normal inspection, normocephalic - Eye Eye exam: Present: EOMI Pupils: Present: ADELINE - ENT ENT exam: Present: normal exam, normal external ear exam, normal oropharynx, other (Anterior rhinoscopy reveals external nasal valve stenosis which appears to be baseline with resolution of an acute flareup of nasal eczema of the external valve and improvement of her chronic rhinitis Pura.) - Neck Neck exam: Present: normal inspection - Respiratory Respiratory exam: Present: stridor (Improved to baseline per patient) - GI/Abdominal GI/Abdominal exam: Present: soft (Obese) - Extremities Exam Extremities exam: Present: normal inspection, normal capillary refill - Neurological Exam Neurological exam: Present: alert, oriented X3, CN II-XII intact - Psychiatric Psychiatric exam: Present: normal affect, normal mood - Skin Skin exam: Present: normal color, warm, other (Noted areas of eczema on her hands and face nasal airway) Results - Labs CBC & BMP: 04/16/17 15:35 04/16/17 15:35 Lab Results: I have reviewed the past 24 hour labs
[2017-04-18] MEDS: INSULIN REGULAR 100 UNIT/ML SUBCUT SCH ×4 (08:57→21:00)
[2017-04-18] MEDS ORDERED: VANCOMYCIN INJ 1,750 MG in SODIUM CHLORIDE 0.9% 500 ML IV SCH (09:00)
[2017-04-18] MEDS: PANTOPRAZOLE 40 MG VIAL IV SCH (09:07)
[2017-04-18] MEDS: ENOXAPARIN 40 MG/0.4 ML SYRINGE SUBCUT SCH (09:17)
[2017-04-18] MEDS: NYSTATIN 500,000 UNIT/5 ML UDCUP SWISH/SWAL SCH ×4 (09:18→21:00)
[2017-04-18] MEDS: SODIUM CHLORIDE 0.65% NASAL SPRAY 45 ML BOTTLE BOTH NARES SCH ×4 (09:20→21:00)
[2017-04-18] MEDS: FLUTICASONE 50 MCG NASAL SPRAY 16 GM BOTTLE BOTH NARES SCH (09:20)
[2017-04-18] MEDS: LEVOFLOXACIN INJ 750 MG in PREMIX 1 EACH IV SCH (09:27)
--- NOTE | 2017-04-18 11:21 | Hospitalist Progress Note ---
Assessment and Plan (1) Acute laryngotracheitis Status: Acute Assessment and plan: Will decrease steroids and change to po Rheumatology has been consulted Possible discharge tomorrow Current Visit: Yes (2) Hypertension Status: Chronic Current Visit: Yes Qualifiers: Hypertension type: essential hypertension Qualified Code(s): I10 - Essential (primary) hypertension Hospitalist: Subjective Interval history: No acute events overnight. Patient feels better but still reports quite a bit of sob with walking to the bathroom. Exam - Constitutional Vitals: Period Temp Pulse Resp BP Sys/Wagner Pulse Ox Last 24 Hr 97.0 F-97.7 F 60-91 15-22 107-169/59-95 92-98 General appearance: over weight - Head Head exam: Present: normocephalic, atraumatic - Eye Eye exam: Present: EOMI Pupils: Present: ADELINE - ENT ENT exam: Present: normal exam - Expanded ENT Exam Mouth exam: Present: dry mucosa Throat exam: Present: post pharyngeal edema, post pharyngeal erythema ( Erythemic and edematous uvula possibly bacterial but potentially irritative because of upper respiratory symptoms and chronic mouth breathing and snoring) - Neck Neck exam: Present: normal inspection - Respiratory Respiratory exam: Present: other (coarse breath sounds). Absent: wheezes - Cardiovascular Cardiovascular exam: Present: regular rate and rhythm - GI/Abdominal GI/Abdominal exam: Present: normal bowel sounds, soft. Absent: tenderness, rebound - Extremities Exam Extremities exam: Present: normal inspection - Back Exam Back exam: Present: normal inspection - Neurological Exam Neurological exam: Present: alert, oriented X3 - Psychiatric Psychiatric exam: Present: normal affect, normal mood - Skin Skin exam: Present: warm, intact Results - Labs CBC & BMP: 04/16/17 15:35 04/16/17 15:35 Specialty Discharge - Follow Up or Referrals Follow up with: Jerrell Livingston DO [Physician] - 05/02/17 1:30 pm
--- NOTE | 2017-04-18 12:16 | Rheumatology Consultation ---
Assessment and Plan - Time spent with patient Time spent with patient: Greater than 30 minutes (1) Laryngotracheitis, chronic Status: Acute Assessment and plan: I am very thankful to primary team for providing me opportunity to participate in patient care. Ms. Nunez is a 46-year-old pleasent female with past medical history of hypertension, chronic sinusitis and ex-smoker, admitted with shortness of breath and then diagnosed with acute laryngotrachetitis based on CT neck findings. She has previous history of recurrent laryngitis and chronic laryngotracheitis, as well as episodes of nasal bridge pain which also seems to be related to nasal Chondritis. Looking at broad pictures of her with episodes of chronic recurrent sinusitis, chondritis at nasal bridge cartilage and chronic laryngotracheitis, She is highly suspected to have underlying autoimmune disorder possibly Granulomatosis with Polyangitis (GPA), Relapsing polychondritis (RP) OR Rheumaotid arthritis (RA) with atypical presentation. Other possibilities may be Sarcoidosis and unlikely Amyloidosis. *Ordered work up for GPA, RA and Sarcoidosis *Final diagnosis is based on tissue biopsy *Agree to continue steroids and other medical management * FU at clinic after 2 weeks *Please schedule patient at [facility] rheumatology clinic after 2-4 weeks appointment Current Visit: Yes (2) Acute laryngotracheitis Status: Acute Current Visit: Yes (3) Chronic sinusitis Status: Acute Current Visit: Yes History of Present Illness - Data of Consult Consult date: 04/18/17 - Consult Narrative Reason for consult: suspected autoimmune connective tissue disease History of present illness: Ms. Nunez is a 46 year old female with past medical history of hypertension, and ex-smoker for more than 10 years, is hospitalized with chief complain of hortness of breath. She was seen in the emergency room and evaluated by ENT who states that she would be better served on the hospitalist service and gave multiple recommendations. According to patient, she has had episodes of pain and soreness at nasal bridge cartilage in past and was evaluated by ENT. During current hospitalization, she has had CT neck done which was significantly abnormal so ENT specialist Dr. Livingston was consulted to manage her condition. She is currently getting steroids. She denies chest pain, dyspnea, ear pain, episodes of ear tenderness, oral sores, joints pain, cough, abdominal pain, diarrhea, skin rash or DVT in past. She was suspected to have autoimmune condition for which Rheumatology consult was obtained today morning. CC: Huber Resendez MD - Home Medications and Allergies Home Medications: Home Medications Medication Instructions Recorded Confirmed Type Albuterol Inhaler [Proventil 2 puff INH Q4H PRN 04/14/17 04/14/17 History Inhaler] Valsartan [Diovan] 160 mg PO BEDTIME 04/14/17 04/14/17 History Allergies/Adverse Reactions: Allergies Allergy/AdvReac Type Severity Reaction Status Date / Time No Known Allergies Allergy Verified 04/14/17 06:56 - Constitutional Constitutional: Present: as per HPI. Absent: anorexia, chills, fever(s), headache(s), night sweats - EENT Eyes: Present: as per HPI. Absent: diplopia, loss of vision Ears: Present: as per HPI. Absent: ear discharge, ear pain, tinnitus Nose, mouth and throat: Present: as per HPI, hoarseness, sinus pressure. Absent : dysphagia, lip swelling, nasal congestion, tongue swelling - Cardiovascular Cardiovascular: Present: as per HPI, dyspnea. Absent: chest pain at rest, orthopnea - Respiratory Respiratory: Present: as per HPI, cough. Absent: hemoptysis, wheezing - Gastrointestinal Gastrointestinal: Present: as per HPI. Absent: abdominal pain, cramping, diarrhea, dyspepsia, heartburn, loose stools, nausea, vomiting - Genitourinary Genitourinary: Present: as per HPI. Absent: flank pain - Musculoskeletal Musculoskeletal: Present: as per HPI. Absent: arthralgias, back pain, joint swelling, muscle cramps - Neurological Neurological: Present: as per HPI. Absent: numbness, paresthesias, syncope - Hematologic/Lymphatic Hematologic/Lymphatic: Absent: easy bleeding, easy bruising Medical,Surgical,& Family Hx - Medical History Cardio: History of: Hypertension HEENT: History of: HEENT Problems (eczema in nasal passages) Respiratory: History of: Asthma Musculoskeletal: History of: Back/Neck Problems Other: History of: Eczema - Surgical History Reproductive Surgeries: Surgical HX of;: Tubal Ligation (1998) Orthopedic Surgeries: Surgical HX of;: Total Hip Replacement (Right) - Family History Family History: Reports;: Family Cancer (grandmother), Family Diabetes (sister, brother), Family Hypertension (sister, brother), Family Psychiatric Problems ( brother) - Social History Smoking Status: Former smoker Frequency of Alcohol Use: None Type of Drug Use: None Exam Rheumatology - Constitutional Vitals: Vital Signs Temp Pulse Pulse Resp BP Pulse Ox Pulse Ox 04/18/17 11:02 97.5 F L 66 20 153/78 98 04/18/17 08:37 76 04/18/17 08:00 97.5 F L 75 20 143/85 96 04/18/17 07:42 88 20 98 04/18/17 07:34 80 20 92 L 04/18/17 05:00 20 04/18/17 04:00 97.1 F L 65 22 143/73 98 04/18/17 03:00 18 04/18/17 00:00 97.7 F 60 20 111/71 95 04/17/17 20:00 97.5 F L 68 18 120/59 95 04/17/17 19:15 72 15 97 04/17/17 19:10 70 15 97 04/17/17 17:41 97.6 F 63 18 136/77 96 04/17/17 16:48 97.6 F 82 16 124/69 95 04/17/17 16:10 97.3 F L 91 H 18 107/63 96 04/17/17 15:10 97.6 F 79 18 125/75 95 04/17/17 14:05 97.6 F 71 18 127/79 93 L 04/17/17 13:05 97.6 F 71 18 130/76 95 04/17/17 12:47 97.2 F L 79 18 144/83 94 L 04/17/17 12:32 75 18 154/86 96 04/17/17 12:23 97.2 F L 79 18 143/85 97 04/17/17 12:22 78 18 163/88 97 04/17/17 12:16 81 18 163/87 98 General appearance: normal weight - Head Head exam: Present: normal inspection - Eye Eye exam: Present: EOMI. Absent: conjunctival injection, periorbital swelling Pupils: Present: ADELINE - ENT ENT exam: Present: normal external ear exam - Neck Neck exam: Present: normal inspection. Absent: lymphadenopathy, thyromegaly - Respiratory Respiratory exam: Present: clear to auscultation bilaterally. Absent: chest wall tenderness, rales, rhonchi, wheezes - Cardiovascular Cardiovascular exam: Present: regular rate and rhythm. Absent: systolic murmur - GI/Abdominal GI/Abdominal exam: Present: normal bowel sounds, soft. Absent: tenderness, rebound - Extremities Exam Extremities exam: Present: full ROM - Back Exam Back exam: Present: normal inspection - Neurological Exam Neurological exam: Present: alert, oriented X3, CN II-XII intact - Psychiatric Psychiatric exam: Present: normal affect - Skin Skin exam: Present: normal color, warm - Lymphatic Lymphatic: Absent: aricular lymphadenopathy, axillary lymphadenopathy, inguinal lymphadenopathy, no cervical lymphadenopathy Results - Labs CBC & BMP: 04/16/17 15:35 04/16/17 15:35 - Diagnostic Findings Procedure: CT: report reviewed by me (MPRESSION: The airway appears narrowed especially at the level of the) Specialty Discharge - Follow Up or Referrals Follow up with: Jerrell Livingston DO [Physician] - 05/02/17 1:30 pm Adriel Ji MD [Physician] - 05/02/17 10:00 am ([phone] #2 THEN #4 DR JI [facility] 3RD FLOOR) - Speciality Discharge Instructions Rheumatology Instructions: Follow up after 2 weeks at [facility] Rheumatology clinic
[2017-04-18] MEDS: predniSONE 20 MG TABLET PO SCH (21:00)
[2017-04-19] MEDS: ACETAMINOPHEN 325 MG TABLET PO PRN (05:56)
[2017-04-19] MEDS: BUDESONIDE 0.5 MG/2 ML NEB RESP TX SCH (07:36)
[2017-04-19] MEDS: INSULIN REGULAR 100 UNIT/ML SUBCUT SCH ×2 (08:45→12:52)
[2017-04-19 09:08] LABS: Albumin (SPE) 3.7 G/DL (3.2-5.3); Albumin (SPE) Rel % 53.4 %; Alpha 1 (SPE) 0.2 G/DL (0.1-0.4); Alpha 1 (SPE) Rel % 2.7 %; Alpha 2 (SPE) 0.9 G/DL (0.4-1.0); Alpha 2 (SPE) Rel % 12.6 %; Beta (SPE) 0.8 G/DL (0.5-1.1); Beta (SPE) Rel % 11.6 %; Gamma (SPE) 1.4 G/DL (0.7-1.7); Gamma (SPE) Rel % 19.7 %; Total Protein (Chem) 6.9 G/DL (6.4-8.3)
[2017-04-19] MEDS: LEVOFLOXACIN INJ 750 MG in PREMIX 1 EACH IV SCH (09:40)
[2017-04-19] MEDS: PANTOPRAZOLE 40 MG VIAL IV SCH (09:43)
[2017-04-19] MEDS: predniSONE 20 MG TABLET PO SCH (09:48)
[2017-04-19] MEDS: NYSTATIN 500,000 UNIT/5 ML UDCUP SWISH/SWAL SCH (09:48)
[2017-04-19] MEDS: ENOXAPARIN 40 MG/0.4 ML SYRINGE SUBCUT SCH (09:51)
[2017-04-19] MEDS: FLUTICASONE 50 MCG NASAL SPRAY 16 GM BOTTLE BOTH NARES SCH (09:54)
[2017-04-19] MEDS: SODIUM CHLORIDE 0.65% NASAL SPRAY 45 ML BOTTLE BOTH NARES SCH (09:54)
--- NOTE | 2017-04-19 11:38 | Discharge Summary ---
Hospital Course - Hospital Course Hospital Course: 46 y/o AAF with history of HTN admitted with shortness of breath. CT was consistent with acute laryngotracheitis. ENT was consulted, recommended patient be placed in the intensive care unit under hospitalist care due to multiple comobidities. Several recommendations were made, including IV antibiotics, Decadron and inhaled corticosteroids. Laryngoscopy was performed, showing purulent secretions. Patient continued to improve. Rheumatology was consulted, several test were ordered. She has now reached maximal benefit of inpatient stay and will be discharged to home. She will follow-up with ENT and Rheumatology in clinic. - Time spent with patient Time with patient DS: Greater than 30 minutes (35) Diagnosis - Discharge Diagnosis (1) Acute laryngotracheitis Status: Acute (2) Hypertension Status: Chronic Specialty Discharge - Follow Up or Referrals Follow up with: Jerrell Livingston DO [Physician] - 05/02/17 1:30 pm Adriel Ji MD [Physician] - 05/02/17 10:00 am ([phone] #2 THEN #4 [facility] JI [facility] 3RD FLOOR) Discharge Plan - Discharge Data Disposition: Disch To Home/Self Care Condition at Discharge: Stable Discharge Diet: advance to your usual diet Activity: increase activity as tolerated Hygiene: no restrictions Weight Bearing at Discharge: weight bear as tolerated Driving: no restrictions Contact your physician if you experience:: fever over 101, Shortness of breath - Discharge Medications New predniSONE TAB [PredniSONE] 10 mg PO DAILY #30 tablet Levofloxacin Tab [Levaquin Tab] 750 mg PO DAILY #7 tablet Continue Valsartan [Diovan] 160 mg PO BEDTIME Albuterol Inhaler [Proventil Inhaler] 2 puff INH Q4H PRN PRN Reason: Shortness Of Breath/Wheezing - Follow Up or Referral Follow Up: Jerrell Livingston DO [Physician] - 05/02/17 1:30 pm Adriel Ji MD [Physician] - 05/02/17 10:00 am ([phone] #2 THEN #4 [facility] J[facility] 3RD FLOOR) - Forms/Instructions Instructions: Prednisone (By mouth), Levofloxacin (By mouth), Laryngitis (DC), Sinusitis, Computer Publisher (GEN) Exam - Constitutional Vitals: Period Temp Pulse Resp BP Sys/Wagner Pulse Ox Last 24 Hr 96.7 F-99.0 F 54-80 16-21 127-189/72-99 90-100 General appearance: over weight - Head Head exam: Present: normocephalic, atraumatic - Eye Eye exam: Present: EOMI Pupils: Present: ADELINE - ENT ENT exam: Present: normal exam - Neck Neck exam: Present: normal inspection - Respiratory Respiratory exam: Present: clear to auscultation bilaterally. Absent: rhonchi, wheezes - Cardiovascular Cardiovascular exam: Present: regular rate and rhythm - GI/Abdominal GI/Abdominal exam: Present: normal bowel sounds, soft. Absent: tenderness, rebound - Extremities Exam Extremities exam: Present: normal inspection - Back Exam Back exam: Present: normal inspection - Neurological Exam Neurological exam: Present: alert, oriented X3 - Psychiatric Psychiatric exam: Present: normal affect, normal mood - Skin Skin exam: Present: warm, intact Discharge Results Procedures and tests throughout hospitalization: Pending Orders 04/15/17 07:33 MRSA Surveillence, Inf Control Routine 04/18/17 12:29 ANCA Panel for Vasculitis Stat Angiotensin Converting Enzyme Stat Hoec-7-Yhvdpsnocagff (Beta-2-M Stat Cyclic Citrull Peptide Ab Stat Myeloperoxidase Antibodies Stat Labs on day of discharge: Labs from last 24 hours 04/19/17 04/18/17 04/18/17 07:38 20:19 15:48 POC Glucose 111 H 122 H 166 H C-Reactive Protein Total Protein Pro Electrophoresis Int Serum Total Protein PEP Albumin (PEP) Albumin (relative) Lzbci-8-Ipiuhuwf Ojhoo-4-Qoqqeveb rel Yofjc-9-Etxhpyiq Nypwg-2-Yfxuhzks rel Jqmk-3-Skknbsam Xfxl-5-Ytelhkgf rel Gamma Globulins Gamma Globulins rel Rheumatoid Factor BALDOMERO Screen 04/18/17 04/18/17 04/18/17 12:29 12:29 12:29 POC Glucose C-Reactive Protein < 0.29 Total Protein 6.9 Pro Electrophoresis Int Serum Total Protein PEP 6.9 Albumin (PEP) 3.7 Albumin (relative) 53.4 Syhgo-9-Dxotflsm 0.2 Zhhnu-6-Pehrujib rel 2.7 Wqszy-8-Nygnemwp 0.9 Qbjlw-4-Orngevvf rel 12.6 Zqba-0-Iwhfexkw 0.8 Rckt-3-Ofjimabb rel 11.6 Gamma Globulins 1.4 Gamma Globulins rel 19.7 Rheumatoid Factor BALDOMERO Screen 04/18/17 04/18/17 12:29 12:29 POC Glucose C-Reactive Protein Total Protein Pro Electrophoresis Int Serum Total Protein PEP Albumin (PEP) Albumin (relative) Ncyjj-9-Zznokwij Zwetz-9-Idvkqjdn rel Hihhq-7-Fznhvtdb Pxurj-2-Patjlbpq rel Psql-6-Xoyjvedy Jukd-9-Tfbpwjyg rel Gamma Globulins Gamma Globulins rel Rheumatoid Factor < 15 BALDOMERO Screen Negative (<1:160) DS: Provider Date of admission: 04/14/17 10:29 Primary care physician: Aric Padilla Attending physician on admission: Yadira Christie Consults: 04/14/17 11:05 Consult to Pharmacy [CONS] Routine Reason for Pharmacy Consult: Dose/Manage Vancomycin Consult to Physician [CONS] Routine Comment: Consulting Provider: Jerrell Livingston Person Notified: Dr. Livingston Date Notified: 04/14/17 Time Notified: 17:17 Consult Notification Comment: will come see tomorrow had already seen her in the ER 04/14/17 11:48 Consult to Pastoral Services [CONS] Routine Comment: Pastoral Screen: Request Field Court Researcher Visit 04/17/17 17:33 Consult to Physician [CONS] Routine Comment: sarcoid vs amyloid vs other Consulting Provider: Adriel Ji Discharging clinician: Huber Resendez MD
[2017-04-19 12:50] VITALS: BP 154/92
[2017-04-19] MEDS ORDERED: VALSARTAN 160 MG TABLET PO SCH (21:00)
[2017-04-20 13:55] LABS: Myeloperoxidase Antibody < 0.2 U
--- NOTE | 2017-04-26 09:18 | Physician Query Form ---
CLICK EDIT DOCUMENT TO SELECT QUERY ANSWER --> OK --> SIGN Lizbeth Meng RN Clinical Technical Applications Specialist W) [phone] (f) [phone] [email or web address]: Make your selection(s) from the choices in EACH section by typing an "x" and enter comments in the comment section. Please use your independent medical judgment in providing your response. This request does not imply that any particular answer is desired or expected. CLINICAL INDICATORS: (Providers should not edit this section) Based on conflicting documentation of "Normal Weight" "Over Weight" and "Morbid Obesity" BMI by fish and wildlife warden is 48.6. "Class 3 Obesity" "Nutrition d/c plan: Pt to d/c concentrated sweets including Mt Dew-choose calorie free beverages, d/c fried foods, include more fruits and veggies in diet." Based on the above, could you clarify the appropriate diagnosis, if significant , that supports the above abnormalities and additional evaluation, monitoring, and/or treatment rendered: ( ) Normal Weight ( x) Over Weight ( ) Morbid Obesity ( ) Other, please specify: ( ) Clinically unable to determine COMMENTS: PLEASE ALSO DOCUMENT RESPONSE IN PROGRESS NOTES AND/OR DISCHARGE SUMMARY Use of terms such as suspected, likely, or probable (associated with a specific diagnosis that is being evaluated, monitored, or treated as if it exists) are acceptable and can be restated in the discharge summary if not ruled out. MTDD
== END 2017-04-19 13:35 | disposition home or self-care (01) | DRG 153 ==
LOC: N.ED 06:49 → SUATTDRO 10:29 → N.EDINP 10:29 → N.CC 11:10 → N.2E 04-17 18:11
PROVIDERS: ADMIT Hospitalist; ATTEND Internal Medicine

== ENCOUNTER 2018-02-09 17:55 | Inpatient (IN) ==
[2018-02-09] MEDS ORDERED: ONDANSETRON 4 MG/2 ML VIAL IV STA (18:50)
[2018-02-09] MEDS ORDERED: methylPREDNISolone SOD SUC 125 MG/2 ML VIAL IV STA (18:50)
[2018-02-09] MEDS ORDERED: MORPHINE 4 MG/1 ML VIAL IV STA (18:50)
[2018-02-09] MEDS ORDERED: cefTRIAXone 1,000 MG in SODIUM CHLORIDE 0.9% 100 ML IV STA (18:50)
[2018-02-09] MEDS ORDERED: FUROSEMIDE 100 MG/10 ML VIAL IV STA (18:50)
[2018-02-09 18:57] LABS: Basophils # 0.1 10*3/uL (0.0-0.2); Basophils % 0.6 % (0.0-0.8); Eosinophils # 0.1 10*3/uL (0.0-0.87); Eosinophils % 1.3 % (0.00-10.9); Hematocrit 43.5 VOL% (35.7-47.0); Hemoglobin 14.2 GM/DL (12.0-16.0); Immature Granulocytes % 0.6 %; Immature Granulocytes Absolute 0.05 #; Lymphocytes # 1.3 10*3/uL (1.4-4.0); Lymphocytes % 16.2 % (21.3-54.2); Mean Corpuscular HGB Conc 32.6 GM/DL (32-36); Mean Corpuscular Hemoglobin 32 PG (27-34); Mean Corpuscular Volume 97.8 FL (87-102); Mean Platelet Volume 11.6 FL (9.6-12.0); Monocytes # 0.7 10*3/uL (0.11-0.8); Monocytes % 8.3 % (1.7-12.7); Neutrophils # 5.8 10*3/uL (1.4-7.4); Platelet Count 278 T/CUMM (130-400); Red Blood Count 4.45 MC/CUMM (3.8-5.5); Red Cell Distribution Width 13.1 % (9.3-17.3); White Blood Count 7.9 T/CUMM (4-12)
[2018-02-09] MEDS ORDERED: ALBUTEROL 2.5 MG/3 ML NEB RESP TX SCH (19:00)
[2018-02-09 19:06] LABS: PT Patient Result 10.7 SECS
[2018-02-09 19:13] LABS: Alanine Aminotransferase 30 U/L (13-56); Albumin 3.7 G/DL (3.4-5.0); Alkaline Phosphatase 92 U/L (45-117); Aspartate Amino Transferase 20 U/L (0-37); Blood Urea Nitrogen 9 MG/DL (7-18); Calcium 9.5 MG/DL (8.5-10.1); Glucose 102 MG/DL (74-106); Osmolality,Calculated 273.7 MOS/KG (273-304); Potassium 2.9 MMOL/L (3.5-5.1); Sodium 138 MMOL/L (136-145)
[2018-02-09] MEDS ORDERED: POTASSIUM CHLORIDE 20 MEQ TABLET PO STA (19:56)
[2018-02-09 19:58] LABS: Apearance,Urine CLOUDY (Clear); Bacteria,Urine Occasional /HPF (Few); Bilirubin,Urine Negative (Negative); Blood, Urine Moderate mg/dL (Negative); Glucose,Urine (UA) Negative (Negative); Hyaline Casts,Urine 16 /LPF (0-3); Ketones,Urine Negative (Negative); Mucus,Urine Occasional /LPF (Occasional); Nitrite,Urine Negative (Negative); Protein,Urine Negative; RBC,Urine 4 /HPF (0-4); Squamous Epithelial Cell,Urine Occasional /HPF (0-10); Urine Color Yellow (Yellow); Urine Specific Gravity 1.006 (1.001-1.035); Urine Urobilinogen < 2.0 EU/DL (0.2-1.0); WBC,Urine 7 /HPF (0-6)
[2018-02-09] MEDS ORDERED: ONDANSETRON 4 MG/2 ML VIAL IV PRN (21:57)
[2018-02-09] MEDS ORDERED: MORPHINE 4 MG/1 ML VIAL IV PRN (21:57)
[2018-02-09] MEDS ORDERED: GLUCAGON 1 MG VIAL IM PRN (21:57)
[2018-02-09] MEDS ORDERED: DEXTROSE 50% 25 GM/50 ML VIAL IV PRN (21:57)
[2018-02-09] MEDS: INSULIN REGULAR 100 UNIT/ML SUBCUT SCH (23:20)
[2018-02-09] MEDS ORDERED: ALBUTEROL 2.5 MG/3 ML NEB RESP TX PRN (23:33)
[2018-02-10] MEDS: ALBUTEROL/IPRATROPIUM 3 ML NEB RESP TX SCH ×4 (00:40→19:52)
[2018-02-10] MEDS: SODIUM CHLORIDE 0.9% 1,000 ML IV SCH ×3 (03:30→20:57)
[2018-02-10] MEDS: methylPREDNISolone SOD SUC 40 MG/1 ML VIAL IV SCH ×3 (05:26→22:17)
[2018-02-10 07:17] LABS: Albumin 3.3 G/DL (3.4-5.0); Bilirubin,Total 0.6 MG/DL (0.2-1.0); Calcium 8.9 MG/DL (8.5-10.1); Osmolality,Calculated 280.8 MOS/KG (273-304); Potassium 3.2 MMOL/L (3.5-5.1); Risk Ratio 2.64; Thyroid Stimulating Hormone 0.377 uIU/ml (0.358-3.74); Total Protein 7.8 G/DL (6.4-8.3); VLDL CHOLESTEROL 15.8 MG/DL
[2018-02-10] MEDS ORDERED: metFORMIN 500 MG TABLET PO SCH (08:00)
[2018-02-10] MEDS ORDERED: FUROSEMIDE 20 MG/2 ML VIAL IV SCH (08:00)
[2018-02-10 08:22] LABS: Basophils % 0.1 % (0.0-0.8); Eosinophils % 0.1 % (0.00-10.9); Hematocrit 38.5 VOL% (35.7-47.0); Hemoglobin 12.7 GM/DL (12.0-16.0); Immature Granulocytes % 0.4 %; Immature Granulocytes Absolute 0.06 #; Lymphocytes # 0.7 10*3/uL (1.4-4.0); Lymphocytes % 5.1 % (21.3-54.2); Mean Corpuscular Hemoglobin 32 PG (27-34); Monocytes # 0.2 10*3/uL (0.11-0.8); Monocytes % 1.2 % (1.7-12.7); Neutrophils # 12.5 10*3/uL (1.4-7.4); Neutrophils % 93.1 % (38.7-73.9); Platelet Count 270 T/CUMM (130-400); Red Blood Count 3.93 MC/CUMM (3.8-5.5); White Blood Count 13.5 T/CUMM (4-12)
[2018-02-10 08:42] LABS: Band Neutrophils 1 % (0-10); Hypochromasia 1+; Lymphocytes 5 % (20-55); Platelet Estimate Adequate; Segmented Neutrophils 93 % (50-85); Total Cells Counted 100
[2018-02-10] MEDS: INSULIN REGULAR 100 UNIT/ML SUBCUT SCH ×4 (09:13→20:43)
[2018-02-10] MEDS: ENOXAPARIN 40 MG/0.4 ML SYRINGE SUBCUT SCH (09:14)
[2018-02-10] MEDS: POTASSIUM CHLORIDE 20 MEQ TABLET PO SCH (09:14)
[2018-02-10] MEDS: FUROSEMIDE 40 MG TABLET PO SCH (09:14)
[2018-02-10] MEDS: hydroCHLOROthiazide 25 MG TABLET PO SCH (09:14)
[2018-02-10] MEDS: ROSUVASTATIN 10 MG TABLET PO SCH (09:14)
[2018-02-10] MEDS: PANTOPRAZOLE 40 MG TABLET PO SCH (09:14)
[2018-02-10] MEDS: cefTRIAXone 1,000 MG in SYRINGE 1 EACH IV SCH (20:44)
[2018-02-10] MEDS: CETIRIZINE 10 MG TABLET PO SCH (20:45)
[2018-02-10] MEDS: BUDESONIDE/FORMOTEROL 160-4.5 INHALER 6 GM INH SCH (20:58)
[2018-02-10] MEDS ORDERED: cefTRIAXone 1,000 MG in SYRINGE 1 EACH IV SCH (21:00)
[2018-02-11] MEDS: ALBUTEROL/IPRATROPIUM 3 ML NEB RESP TX SCH ×4 (02:25→19:43)
[2018-02-11] MEDS: methylPREDNISolone SOD SUC 40 MG/1 ML VIAL IV SCH ×3 (06:11→20:57)
[2018-02-11] MEDS: ENOXAPARIN 40 MG/0.4 ML SYRINGE SUBCUT SCH (09:33)
[2018-02-11] MEDS: INSULIN REGULAR 100 UNIT/ML SUBCUT SCH ×4 (09:33→21:00)
[2018-02-11] MEDS: hydroCHLOROthiazide 25 MG TABLET PO SCH (09:34)
[2018-02-11] MEDS: ROSUVASTATIN 10 MG TABLET PO SCH (09:34)
[2018-02-11] MEDS: POTASSIUM CHLORIDE 20 MEQ TABLET PO SCH (09:34)
[2018-02-11] MEDS: FUROSEMIDE 40 MG TABLET PO SCH (09:34)
[2018-02-11] MEDS: PANTOPRAZOLE 40 MG TABLET PO SCH (09:35)
[2018-02-11] MEDS: BUDESONIDE/FORMOTEROL 160-4.5 INHALER 6 GM INH SCH ×2 (09:36→21:00)
[2018-02-11] MEDS: SODIUM CHLORIDE 0.9% 1,000 ML IV SCH (15:29)
[2018-02-11] MEDS: CETIRIZINE 10 MG TABLET PO SCH (21:01)
[2018-02-11] MEDS: cefTRIAXone 1,000 MG in SYRINGE 1 EACH IV SCH (21:01)
[2018-02-12] MEDS: ALBUTEROL/IPRATROPIUM 3 ML NEB RESP TX SCH ×2 (00:55→07:40)
[2018-02-12] MEDS: SODIUM CHLORIDE 0.9% 1,000 ML IV SCH (01:05)
[2018-02-12] MEDS: methylPREDNISolone SOD SUC 40 MG/1 ML VIAL IV SCH (05:53)
[2018-02-12 06:33] LABS: Basophils % 0.1 % (0.0-0.8); Hematocrit 35.9 VOL% (35.7-47.0); Immature Granulocytes % 1.4 %; Immature Granulocytes Absolute 0.28 #; Lymphocytes # 1.2 10*3/uL (1.4-4.0); Lymphocytes % 5.9 % (21.3-54.2); Mean Corpuscular HGB Conc 33.4 GM/DL (32-36); Mean Corpuscular Hemoglobin 32 PG (27-34); Mean Platelet Volume 11.9 FL (9.6-12.0); Monocytes # 0.8 10*3/uL (0.11-0.8); Monocytes % 4.1 % (1.7-12.7); Neutrophils # 17.3 10*3/uL (1.4-7.4); Neutrophils % 88.5 % (38.7-73.9); Platelet Count 268 T/CUMM (130-400); Red Cell Distribution Width 13.1 % (9.3-17.3); White Blood Count 19.5 T/CUMM (4-12)
[2018-02-12 06:51] LABS: Osmolality,Calculated 285.5 MOS/KG (273-304); Potassium 3.7 MMOL/L (3.5-5.1)
[2018-02-12] MEDS: INSULIN REGULAR 100 UNIT/ML SUBCUT SCH ×2 (09:03→11:50)
[2018-02-12] MEDS: PANTOPRAZOLE 40 MG TABLET PO SCH (09:04)
[2018-02-12] MEDS: ROSUVASTATIN 10 MG TABLET PO SCH (09:04)
[2018-02-12] MEDS: hydroCHLOROthiazide 25 MG TABLET PO SCH (09:04)
[2018-02-12] MEDS: ENOXAPARIN 40 MG/0.4 ML SYRINGE SUBCUT SCH (09:05)
[2018-02-12] MEDS: POTASSIUM CHLORIDE 20 MEQ TABLET PO SCH (09:05)
[2018-02-12] MEDS: FUROSEMIDE 40 MG TABLET PO SCH (09:05)
[2018-02-12] MEDS: BUDESONIDE/FORMOTEROL 160-4.5 INHALER 6 GM INH SCH (09:06)
[2018-02-12 11:18] VITALS: BP 156/96
== END 2018-02-12 13:40 | disposition home or self-care (01) | DRG 153 ==
LOC: N.ED 17:55 → N.EDINP 20:38 → SUATTDRO 20:38 → N.5E 21:21
PROVIDERS: ADMIT Hospitalist; ATTEND Internal Medicine

== ENCOUNTER 2018-04-08 14:00 | Inpatient (IN) ==
[2018-04-08 16:03] LABS: PT Patient Result 10.8 SECS
[2018-04-08 16:18] LABS: Alanine Aminotransferase 28 U/L (13-56); Albumin 3.1 G/DL (3.4-5.0); Alkaline Phosphatase 89 U/L (45-117); Aspartate Amino Transferase 27 U/L (0-37); Blood Urea Nitrogen 6 MG/DL (7-18); Calcium 8.7 MG/DL (8.5-10.1); Glucose 159 MG/DL (74-106); Osmolality,Calculated 277.5 MOS/KG (273-304); Potassium 3.2 MMOL/L (3.5-5.1); Sodium 139 MMOL/L (136-145); Total Protein 7.3 G/DL (6.4-8.3); Troponin I Only < 0.015 NG/ML (0.00-0.045)
[2018-04-08] MEDS ORDERED: methylPREDNISolone SOD SUC 125 MG/2 ML VIAL IV STA (16:49)
[2018-04-08] MEDS: ALBUTEROL 2.5 MG/3 ML NEB RESP TX SCH ×3 (17:20→18:00)
[2018-04-08 17:33] LABS: Basophils % 0.5 % (0.0-0.8); Eosinophils # 0.2 10*3/uL (0.0-0.87); Eosinophils % 2.3 % (0.00-10.9); Hematocrit 38.7 VOL% (35.7-47.0); Hemoglobin 12.5 GM/DL (12.0-16.0); Immature Granulocytes % 0.6 %; Immature Granulocytes Absolute 0.05 #; Lymphocytes % 12.8 % (21.3-54.2); Mean Corpuscular HGB Conc 32.3 GM/DL (32-36); Mean Corpuscular Hemoglobin 32 PG (27-34); Mean Corpuscular Volume 98.2 FL (87-102); Mean Platelet Volume 11.1 FL (9.6-12.0); Monocytes # 0.7 10*3/uL (0.11-0.8); Monocytes % 9.1 % (1.7-12.7); Neutrophils # 5.9 10*3/uL (1.4-7.4); Neutrophils % 74.7 % (38.7-73.9); Platelet Count 296 T/CUMM (130-400); Red Blood Count 3.94 MC/CUMM (3.8-5.5); Red Cell Distribution Width 13.2 % (9.3-17.3); White Blood Count 7.8 T/CUMM (4-12)
[2018-04-08] MEDS ORDERED: DEXAMETHASONE 4 MG/1 ML VIAL IV STA (17:57)
[2018-04-08] MEDS ORDERED: POTASSIUM CHLORIDE 20 MEQ TABLET PO STA (17:58)
[2018-04-08] MEDS ORDERED: ONDANSETRON 4 MG/2 ML VIAL IV PRN (20:23)
[2018-04-08] MEDS ORDERED: ACETAMINOPHEN 325 MG TABLET PO PRN (20:23)
[2018-04-08] MEDS ORDERED: GLUCAGON 1 MG VIAL IM PRN (20:23)
[2018-04-08] MEDS ORDERED: DEXTROSE 50% 25 GM/50 ML VIAL IV PRN (20:23)
[2018-04-08] MEDS ORDERED: ALBUTEROL/IPRATROPIUM 3 ML NEB RESP TX PRN (20:40)
[2018-04-08] MEDS: CETIRIZINE 10 MG TABLET PO SCH (22:19)
[2018-04-08] MEDS: INSULIN LISPRO 100 UNIT/ML SUBCUT SCH (22:19)
[2018-04-08] MEDS: BUDESONIDE/FORMOTEROL 160-4.5 INHALER 6 GM INH SCH (22:19)
[2018-04-08] MEDS: ENOXAPARIN 40 MG/0.4 ML SYRINGE SUBCUT SCH (22:19)
[2018-04-09] MEDS: methylPREDNISolone SOD SUC 125 MG/2 ML VIAL IV SCH ×3 (00:42→16:09)
[2018-04-09] MEDS: BUDESONIDE/FORMOTEROL 160-4.5 INHALER 6 GM INH SCH ×2 (08:25→21:43)
[2018-04-09] MEDS: hydroCHLOROthiazide 25 MG TABLET PO SCH (08:25)
[2018-04-09] MEDS: PANTOPRAZOLE 40 MG TABLET PO SCH (08:25)
[2018-04-09] MEDS: INSULIN LISPRO 100 UNIT/ML SUBCUT SCH ×4 (08:25→21:43)
[2018-04-09] MEDS: ROSUVASTATIN 10 MG TABLET PO SCH (08:25)
[2018-04-09] MEDS: ENOXAPARIN 40 MG/0.4 ML SYRINGE SUBCUT SCH (21:43)
[2018-04-09] MEDS: CETIRIZINE 10 MG TABLET PO SCH (21:43)
[2018-04-10] MEDS: methylPREDNISolone SOD SUC 125 MG/2 ML VIAL IV SCH ×2 (00:53→09:23)
[2018-04-10 05:54] LABS: Osmolality,Calculated 287.4 MOS/KG (273-304); Potassium 3.8 MMOL/L (3.5-5.1); Risk Ratio 5.27; VLDL CHOLESTEROL 20.8 MG/DL
[2018-04-10] MEDS: INSULIN LISPRO 100 UNIT/ML SUBCUT SCH ×2 (09:23→12:25)
[2018-04-10] MEDS: ROSUVASTATIN 10 MG TABLET PO SCH (09:28)
[2018-04-10] MEDS: PANTOPRAZOLE 40 MG TABLET PO SCH (09:28)
[2018-04-10] MEDS: hydroCHLOROthiazide 25 MG TABLET PO SCH (09:28)
[2018-04-10] MEDS: BUDESONIDE/FORMOTEROL 160-4.5 INHALER 6 GM INH SCH (09:32)
[2018-04-10] MEDS ORDERED: INSULIN GLARGINE 100 UNIT/ML SUBCUT ONE (10:30)
[2018-04-10 12:34] VITALS: BP 135/70
== END 2018-04-10 15:31 | disposition home or self-care (01) | DRG 153 ==
LOC: N.ED 14:00 → N.EDINP 20:23 → N.2E 20:46
PROVIDERS: ADMIT Internal Medicine; ATTEND Internal Medicine